=== PATIENT | female | born 2000 | race Two or more races ===

== ENCOUNTER 2019-08-26 04:17 | Inpatient (IN) | payer MEDICAID ==
[2019-08-26] MEDS ORDERED: Penicillin G Potassium 5 MILLUNITS in Sodium Chloride 0.9% 50 ML IV ONE (04:36)
[2019-08-26] MEDS ORDERED: Lactated Ringers 1,000 ML IV ONE ×2 (04:45→06:36)
[2019-08-26] MEDS ORDERED: Ropivacaine 100 ML ONE (05:24)
--- NOTE | 2019-08-26 05:30 | PCM.LDHP ---
L&D History of Present Illness - General Date of Service: 08/26/19 Admit Problem/Dx: Admission Diagnosis/Problem Admission Diagnosis/Problem Source of Information: Patient History Limitations: Reports: No Limitations - History of Present Illness Introduction:: 08/26/19 19 yo is here in active labor at 39 0/7 weeks. She began faby yesterday afternoon. She came in early this morning at about 4-5 cm, membranes intact. She desires an epidural. A positive blood type. Hep B/C/HIV all non reactive. Needs MMR. GBS positive and is receiving antibiotics. she is non [place] speaking so an interpreter for the deaf is being used. 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: Reports: : 2 Para: 1 LMP (Approximate): Social & Family History - Tobacco Use Smoking Status *Q: Never Smoker H&P Review of Systems - Review of Systems: Review Of Systems: See Below General: Reports: No Symptoms HEENT: Reports: No Symptoms Pulmonary: Reports: No Symptoms Cardiovascular: Reports: No Symptoms Gastrointestinal: Reports: No Symptoms Genitourinary: Reports: No Symptoms Musculoskeletal: Reports: No Symptoms Skin: Reports: No Symptoms Psychiatric: Reports: No Symptoms Neurological: Reports: No Symptoms Hematologic/Lymphatic: Reports: No Symptoms Immunologic: Reports: No Symptoms L&D Exam - Exam Exam: See Below - Vital Signs Vital Signs: Last Vital Signs Temp Pulse 79 08/26/19 04:36 Resp 18 08/26/19 04:36 BP 130/84 08/26/19 04:36 Pulse Ox 98 08/26/19 04:36 Weight: 102.058 kg - OB Specific Contraction Intensity: Moderate to Strong Movement: Active Heart Tones: Present Heart Rate (FHR) Variability: Moderate (6-25 bmp) Presentation: Vertex - Exam General: Alert, Oriented HEENT: PERRLA, Conjunctiva Clear, Hearing Intact, Mucosa Moist & [place], Nares Patent, Normal Nasal Septum, Posterior Pharynx Clear, Pupils Equal, Pupils Reactive Neck: Supple, Trachea Midline Lungs: Clear to Auscultation, Normal Respiratory Effort Cardiovascular: Regular Rate, Regular Rhythm GI/Abdominal Exam: Normal Bowel Sounds, Soft, Non-Tender, No Organomegaly, No Distention, No Mass, Pelvis Stable Rectal Exam: Normal Exam Genitourinary: Normal external exam, Cervical dilitation, Enlarged uterus Back Exam: Normal Inspection, Full Range of Motion Extremities: Normal Inspection, Normal Range of Motion, Non-Tender, No Pedal Edema, Normal Capillary Refill Skin: Warm, Dry, Intact Neurological: Cranial Nerves Intact, Reflexes Equal Bilateral Psychiatric: Alert, Normal Affect, Normal Mood - Patient Data Lab Results Last 24 hrs: Laboratory Results - last 24 hr 08/26/19 08/26/19 08/26/19 Range/Units 04:37 04:37 04:50 WBC 12.4 H (4.5-11.0) K/uL RBC 4.32 (3.30-5.50) M/uL Hgb 11.3 L (12.0-15.0) g/dL Hct 35.6 L (36.0-48.0) % MCV 82 (80-98) fL MCH 26 L (27-31) pg MCHC 32 (32-36) % Plt Count 373 (150-400) K/uL Neut % (Auto) 71 H (36-66) % Lymph % (Auto) 24 (24-44) % [place] % (Auto) 5 (2-6) % Eos % (Auto) 0 L (2-4) % Baso % (Auto) 0 (0-1) % Urine Color Yellow (YELLOW) Urine Appearance Cloudy A (CLEAR) Urine pH 7.0 (5.0-8.0) Ur Specific [place] 1.025 (1.008-1.030) Urine Protein >=300 H (NEGATIVE) mg/dL Urine Glucose (UA) Negative (NEGATIVE) mg/dL Urine Ketones Negative (NEGATIVE) mg/dL Urine Occult Blood Trace-intact H (NEGATIVE) Urine Nitrite Negative (NEGATIVE) Urine Bilirubin Negative (NEGATIVE) Urine Urobilinogen 1.0 (0.2-1.0) EU/dL Ur Leukocyte Esterase Small H (NEGATIVE) Urine RBC 5-10 H (0-5) Urine WBC 20-30 H (0-5) Ur Epithelial Cells Many Amorphous Sediment Few Urine Bacteria Many Urine Mucus Few Urine Opiates Screen Negative (NEGATIVE) Ur Oxycodone Screen Negative (NEGATIVE) Urine Methadone Screen Negative (NEGATIVE) Ur Propoxyphene Screen Negative (NEGATIVE) Ur Barbiturates Screen Negative (NEGATIVE) Ur Tricyclics Screen Negative (NEGATIVE) Ur Phencyclidine Scrn Negative (NEGATIVE) Ur Amphetamine Screen Negative (NEGATIVE) U Methamphetamines Scrn Negative (NEGATIVE) Urine MDMA Screen Negative (NEGATIVE) U Benzodiazepines Scrn Negative (NEGATIVE) U Cocaine Metab Screen Negative (NEGATIVE) U Marijuana (THC) Screen Negative (NEGATIVE) Result Diagrams: 08/26/19 04:50 - Problem List (1) Active labor at term SNOMED Code(s): 15660949 ICD Code: HSY3161 - Status: Acute Current Visit: Yes (2) Mother positive for group B Streptococcus colonization SNOMED Code(s): 11452696735500 ICD Code: P00.2 - AFFECTED BY MATERNAL INFEC/PARASTC DISEASES Status: Acute Current Visit: Yes (3) Rubella non-immune status, antepartum SNOMED Code(s): 757836565 ICD Code: O99.89 - OTH DISEASES AND CONDITIONS COMPL PREG/CHLDBRTH; Z28.3 - UNDERIMMUNIZATION STATUS Status: Acute Current Visit: Yes Problem List Initiated/Reviewed/Updated: Yes Orders Last 24hrs: Active Orders 24 hr Category Date Time Status OB Check [OM.PC] Click to Edit Care 08/26/19 04:36 Ordered PCEA Epidural [RC] ASDIRECTED Care 08/26/19 04:38 Active Lactated Ringers [Ringers, Lactated] 1,000 ml Med 08/26/19 04:45 Active IV BOLUS Penicillin G Potassium [Pfizerpen] 2.5 millunits Med 08/26/19 08:30 Active Sodium Chloride 0.9% [Normal Saline] 50 ml IV Q4H Epidural Catheter Management [OM.PC] Stat Oth 08/26/19 04:38 Ordered Medication Orders Penicillin G Potassium 2.5 (millunits/ Sodium Chloride) 50 mls @ 100 mls/hr IV Q4H JOSE ANGEL Lactated Ringer's (Ringers, Lactated) 1,000 mls @ 999 mls/hr IV BOLUS ONE Stop: 08/26/19 05:45 Assessment/Plan Comment:: 08/26/19 Assessment: in active labor with one prior vaginal delivery without complications Desires epidural GBS positive, one dose of antibiotics is in Needs MMR Plan: Monitor labor progression Anticipate
[2019-08-26] MEDS ORDERED: ePHEDrine 50 MG/ML SDV ONE (05:35)
[2019-08-26] MEDS: ePHEDrine 50 MG/ML SDV IVPUSH PRN ×2 (06:02→06:13)
[2019-08-26] MEDS ORDERED: Lactated Ringers 1,000 ML IV SCH (06:45)
--- NOTE | 2019-08-26 07:10 | ANES ---
DATE OF SERVICE: 08/26/2019 TIME: 514. INDICATION: I was called to the Labor and Delivery Unit by Marnie Hendrickson to evaluate Ms. Chino for a labor epidural. This is her 2nd baby. She is approximately 5 to 6 cm and in very active labor. She does not speak any Swedish, so we explained everything through the wage and hour investigator. The risks and benefits of the procedure were explained to the patient. She wished to proceed with a labor epidural. TECHNIQUE: She was placed in a sitting position. Her back was prepped x3 with Betadine, and 1% lidocaine skin local was used. The epidural was placed at L3-4 using a 17-gauge Tuohy needle and loss of resistance technique. The epidural had very good feel throughout, and the epidural space was easily identified. There was negative CSF, negative blood, negative paresthesias noted. Therefore, a catheter was threaded to 14 cm at the skin. There was negative CSF, negative blood, and negative paresthesias noted with the catheter. Therefore, a 1.5% lidocaine test dose was given. This test dose was negative. The catheter was then secured with Tegaderm and tape and the patient was placed in a supine position. A 0.2% ropivacaine bolus of 12 mL was given. She had very good relief from the initial bolus and her vital signs remained stable. Therefore, a 0.2% ropivacaine drip was started at 12 mL per hour. She tolerated the procedure very nicely. Her vital signs remained stable throughout the procedure and nurse was with me the entire procedure. There were no anesthesia complications noted, and we will continue to monitor her throughout her labor and delivery. Ramírez Lopez CRNA /[id number]
--- NOTE | 2019-08-26 07:21 | PCM.PNLD ---
Labor Progress Note - VS & Meds Vital Signs: Last Vital Signs Temp Pulse 79 08/26/19 04:36 Resp 18 08/26/19 04:36 BP 130/84 08/26/19 04:36 Pulse Ox 98 08/26/19 04:36 Active Medications: Current Medications Ephedrine Sulfate (Ephedrine Sulfate) 10 mg IVPUSH ASDIRECTED PRN PRN Reason: Other Last Admin: 08/26/19 06:13 Dose: 5 mg Penicillin G Potassium 2.5 (millunits/ Sodium Chloride) 50 mls @ 100 mls/hr IV Q4H JOSE ANGEL Oxytocin/Sodium Chloride (Pitocin In Ns 20 Units/1,000 Ml) 20 unit in 1,000 mls @ 2,997 mls/hr IV ASDIRECTED JOSE ANGEL; Protocol Lactated Ringer's (Ringers, Lactated) 1,000 mls @ 999 mls/hr IV BOLUS ONE Stop: 08/26/19 07:36 Last Admin: 08/26/19 05:54 Dose: 999 mls/hr Lactated Ringer's (Ringers, Lactated) 1,000 mls @ 125 mls/hr IV ASDIRECTED JOSE ANGEL Last Admin: 08/26/19 07:00 Dose: 125 mls/hr Discontinued Medications Ephedrine Sulfate (Ephedrine Sulfate) Confirm Administered Dose 50 mg .ROUTE .STK-MED ONE Stop: 08/26/19 05:36 Penicillin G Potassium 5 (millunits/ Sodium Chloride) 50 mls @ 100 mls/hr IV ONETIME ONE Stop: 08/26/19 05:05 Last Admin: 08/26/19 05:06 Dose: 100 mls/hr Lactated Ringer's (Ringers, Lactated) 1,000 mls @ 999 mls/hr IV BOLUS ONE Stop: 08/26/19 05:45 Last Admin: 08/26/19 04:45 Dose: 999 mls/hr Ropivacaine (Naropin 0.2%) Confirm Administered Dose 100 mls @ as directed .ROUTE .STK-MED ONE Stop: 08/26/19 05:25 - Uterine Contractions Uterine Monitoring Mode: External [place] Contraction Frequency (min): unable to assess Contraction Duration (sec): TOCO moved Contraction Intensity: Moderate to Strong - Monitoring Monitor Mode: External Ultrasound Heart Rate (FHR) Variability: Moderate (6-25 bmp) Decelerations: Early - Vaginal Exam Dilation (cm): 8 Effacement (Percent): 90 Station: -1 Cervical Position: Midposition Sterile Vaginal Exam Performed By: Deidra Manrique - Labor Progress (Free Text) Labor Progress: 08/26/19 Difficulty picking up contractions due to body habitus. Baby is showing what we are assuming to be early decelerations at times, attempting to get better strip to identify for sure. Rotating mother on peanut ball. Comfortable with epidural. I did perform AROM, did not get much for fluid and no more bag felt to rupture. Anticipate .
[2019-08-26] MEDS ORDERED: Penicillin G Potassium 2.5 MILLUNITS in Sodium Chloride 0.9% 50 ML IV SCH (08:30)
[2019-08-26] MEDS ORDERED: Docusate Sodium 100 MG Cap PO PRN (08:35)
[2019-08-26] MEDS ORDERED: Benzocaine 20% Top Spray 56 GM Bottle TOP PRN (08:35)
[2019-08-26] MEDS ORDERED: Acetaminophen 325 MG Tab, 50 Tab Bulk Bottle PO PRN (08:35)
[2019-08-26] MEDS ORDERED: Lanolin 100% Cream 40 GM Tube TOP PRN (08:35)
[2019-08-26] MEDS ORDERED: Ibuprofen 200 MG Tab, 24 Tab Bulk Bottle PO PRN (08:35)
--- NOTE | 2019-08-26 08:49 | PCM.DEL ---
L & D Note - General Info Date of Service: 08/26/19 Mother's Due Date: 09/02/19 - Delivery Note Labor: Spontaneous Delivery Outcome: Livebirth Infant Delivery Method: Spontaneous Vaginal Delivery-Single Presentation: Right Occiput Anterior (ADAM) Nuchal Cord: Present (loose, reduced) Anesthesia Type: Epidural Amniotic Fluid Description: Clear Episiotomy Type: None Laceration: 1st Degree, 2nd Degree Suture type: Vicryl Suture size: 3-0 Placenta: Intact, Spontaneous Cord: 3 Vessels Estimated Blood Loss: 300 Resuscitation Needed: No Mikana: Stimulated Provider: Marnie Hendrickson Score 1 min: 8 Score 5 min: 9 Second Stage Interventions: Reports: Second Nurse Assessed Progress of Descent, Second Nurse Reviewed Contraction Pattern, Second Nurse Reviewed Heart Tones, Encouragement Given, Pushing Effectively, Pushing, McRobert's Position, Pushing, Pulls Own Legs Back Delivery Comments (Free Text/Narrative):: 08/26/19 19 yo G2 now P2 delivered a baby girl at 0742 vaginally. She came in with active labor and was given an epidural per her request. She progressed nicely and began involuntarily pushing once complete. Baby girl was born in ADAM position with a loose nuchal cord that was reduced and cried spontaneously. Baby was placed on mothers chest and delayed cord clamping was done for 2 minutes. Apgars 8, 9. Placenta delivered spontaneously intact with a 3 vessel cord. There is a first degree laceration, not repaired. There is a separate very small second degree tear that was repaired. There are also several periurethral splits, one on pt right side was repaired due to oozing. There are no vaginal or cervical lacerations. FF and bleeding light to moderate. Baby is currently at breast and skin to skin doing very well. Stages of labor: 1: 3150-2250 2: 2039-7182 3: 2712-9032 - General Info Date of Service: 08/26/19 Functional Status: Reports: Pain Controlled - Review of Systems General: Reports: No Symptoms HEENT: Reports: No Symptoms Pulmonary: Reports: No Symptoms Cardiovascular: Reports: No Symptoms Gastrointestinal: Reports: No Symptoms Genitourinary: Reports: No Symptoms Musculoskeletal: Reports: No Symptoms Skin: Reports: No Symptoms Neurological: Reports: No Symptoms Psychiatric: Reports: No Symptoms - Patient Data Vitals - Most Recent: Last Vital Signs Temp Pulse 113 H 08/26/19 07:53 Resp 18 08/26/19 04:36 BP 98/54 L 08/26/19 07:53 Pulse Ox 99 08/26/19 06:30 Weight - Most Recent: 102.058 kg I&O - Last 24 Hours: Intake & Output 08/25/19 08/26/19 08/26/19 22:59 06:59 14:59 Output Total 240 Balance -240 Lab Results Last 24 Hours: Laboratory Results - last 24 hr 08/26/19 08/26/19 08/26/19 Range/Units 04:37 04:37 04:50 WBC 12.4 H (4.5-11.0) K/uL RBC 4.32 (3.30-5.50) M/uL Hgb 11.3 L (12.0-15.0) g/dL Hct 35.6 L (36.0-48.0) % MCV 82 (80-98) fL MCH 26 L (27-31) pg MCHC 32 (32-36) % Plt Count 373 (150-400) K/uL Neut % (Auto) 71 H (36-66) % Lymph % (Auto) 24 (24-44) % [place] % (Auto) 5 (2-6) % Eos % (Auto) 0 L (2-4) % Baso % (Auto) 0 (0-1) % Urine Color Yellow (YELLOW) Urine Appearance Cloudy A (CLEAR) Urine pH 7.0 (5.0-8.0) Ur Specific [place] 1.025 (1.008-1.030) Urine Protein >=300 H (NEGATIVE) mg/dL Urine Glucose (UA) Negative (NEGATIVE) mg/dL Urine Ketones Negative (NEGATIVE) mg/dL Urine Occult Blood Trace-intact H (NEGATIVE) Urine Nitrite Negative (NEGATIVE) Urine Bilirubin Negative (NEGATIVE) Urine Urobilinogen 1.0 (0.2-1.0) EU/dL Ur Leukocyte Esterase Small H (NEGATIVE) Urine RBC 5-10 H (0-5) Urine WBC 20-30 H (0-5) Ur Epithelial Cells Many Amorphous Sediment Few Urine Bacteria Many Urine Mucus Few Urine Opiates Screen Negative (NEGATIVE) Ur Oxycodone Screen Negative (NEGATIVE) Urine Methadone Screen Negative (NEGATIVE) Ur Propoxyphene Screen Negative (NEGATIVE) Ur Barbiturates Screen Negative (NEGATIVE) Ur Tricyclics Screen Negative (NEGATIVE) Ur Phencyclidine Scrn Negative (NEGATIVE) Ur Amphetamine Screen Negative (NEGATIVE) U Methamphetamines Scrn Negative (NEGATIVE) Urine MDMA Screen Negative (NEGATIVE) U Benzodiazepines Scrn Negative (NEGATIVE) U Cocaine Metab Screen Negative (NEGATIVE) U Marijuana (THC) Screen Negative (NEGATIVE) Med Orders - Current: Current Medications Acetaminophen (Tylenol Bulk Bottle) 0 mg PO Q4H PRN PRN Reason: Pain Benzocaine (Wygp-C-Kofbqyt 20% [place]) 0 gm TOP Q4H PRN PRN Reason: Perineal Comfort Measure Docusate Sodium (Colace) 100 mg PO BID PRN PRN Reason: Constipation Emollient Ointment (Lansinoh Hpa) 1 gm TOP ASDIRECTED PRN PRN Reason: Sore Nipples Ephedrine Sulfate (Ephedrine Sulfate) 10 mg IVPUSH ASDIRECTED PRN PRN Reason: Other Last Admin: 08/26/19 06:13 Dose: 5 mg Oxytocin/Sodium Chloride (Pitocin In Ns 20 Units/1,000 Ml) 20 unit in 1,000 mls @ 2,997 mls/hr IV ASDIRECTED [facility]; Protocol Last Admin: 08/26/19 07:43 Dose: 999 munits/min, 2,997 mls/hr Lactated Ringer's (Ringers, Lactated) 1,000 mls @ 125 mls/hr IV ASDIRECTED JOSE ANGEL Last Admin: 08/26/19 07:00 Dose: 125 mls/hr Ibuprofen (Motrin Bulk Bottle) 600 mg PO Q6H PRN PRN Reason: Pain Measles/Mumps/Rubella Vaccine Live (M-M-R Ii Vaccine) 0.5 ml SUBCUT .ONCE ONE Stop: 08/26/19 08:36 Discontinued Medications Ephedrine Sulfate (Ephedrine Sulfate) Confirm Administered Dose 50 mg .ROUTE .STK-MED ONE Stop: 08/26/19 05:36 Penicillin G Potassium 5 (millunits/ Sodium Chloride) 50 mls @ 100 mls/hr IV ONETIME ONE Stop: 08/26/19 05:05 Last Admin: 08/26/19 05:06 Dose: 100 mls/hr Penicillin G Potassium 2.5 (millunits/ Sodium Chloride) 50 mls @ 100 mls/hr IV Q4H JOSE ANGEL Lactated Ringer's (Ringers, Lactated) 1,000 mls @ 999 mls/hr IV BOLUS ONE Stop: 08/26/19 05:45 Last Admin: 08/26/19 04:45 Dose: 999 mls/hr Ropivacaine (Naropin 0.2%) Confirm Administered Dose 100 mls @ as directed .ROUTE .STK-MED ONE Stop: 08/26/19 05:25 Lactated Ringer's (Ringers, Lactated) 1,000 mls @ 999 mls/hr IV BOLUS ONE Stop: 08/26/19 07:36 Last Admin: 08/26/19 05:54 Dose: 999 mls/hr - Exam General: Alert, Oriented HEENT: Pupils Equal, Pupils Reactive, EOMI, Mucous Membr. Moist/[place] Neck: Supple Lungs: Clear to Auscultation, Normal Respiratory Effort Cardiovascular: Regular Rate, Regular Rhythm GI/Abdominal Exam: Normal Bowel Sounds, Soft, Non-Tender, No Organomegaly, No Distention, Pelvis Stable (Female) Exam: Normal External Exam, Cervical Dilatation, Enlarged Uterus, Vaginal Bleeding Back Exam: Normal Inspection, Full Range of Motion Extremities: Normal Inspection, Normal Range of Motion, Non-Tender, No Pedal Edema, Normal Capillary Refill Skin: Warm, Dry, Intact Neurological: No New Focal Deficit Psy/Mental Status: Alert, Normal Affect, Normal Mood - Problem List & Annotations (1) Active labor at term SNOMED Code(s): 46213992 Code(s): NMX9622 - Status: Acute Current Visit: Yes (2) Mother positive for group B Streptococcus colonization SNOMED Code(s): 71955150301792 Code(s): P00.2 - AFFECTED BY MATERNAL INFEC/PARASTC DISEASES Status : Acute Current Visit: Yes (3) Rubella non-immune status, antepartum SNOMED Code(s): 407396353 Code(s): O99.89 - OTH DISEASES AND CONDITIONS COMPL PREG/CHLDBRTH; Z28.3 - UNDERIMMUNIZATION STATUS Status: Acute Current Visit: Yes (4) Vaginal delivery SNOMED Code(s): 583742933 Code(s): O80 - ENCOUNTER FOR FULL-TERM UNCOMPLICATED DELIVERY Status: Acute Current Visit: Yes (5) High vaginal laceration during delivery SNOMED Code(s): 453171562 Code(s): O71.4 - OBSTETRIC HIGH VAGINAL LACERATION ALONE Status: Acute Current Visit: Yes (6) started SNOMED Code(s): 414227503 Code(s): FMJ6409 - Status: Acute Current Visit: Yes - Problem List Review Problem List Initiated/Reviewed/Updated: Yes - My Orders Last 24 Hours: My Active Orders 08/26/19 04:36 OB Check [OM.PC] Click to Edit 08/26/19 04:38 PCEA Epidural [RC] ASDIRECTED Epidural Catheter Management [OM.PC] Stat 08/26/19 05:30 Insert [place] Catheter [Insert Urinary Catheter] [OM.PC] Q24H 08/26/19 05:45 Oxytocin/Normal Saline [Pitocin in NS 20 Units/1,000 ML] 20 unit in 1,000 ml IV ASDIRECTED 08/26/19 06:34 Urinary Catheter Assessment [RC] ASDIRECTED 08/26/19 06:45 Lactated Ringers [Ringers, Lactated] 1,000 ml IV ASDIRECTED 08/26/19 08:35 May Shower [RC] ASDIRECTED Up ad Grisel [RC] ASDIRECTED Consult to [employer] Crewmember [CONS] Routine Acetaminophen [Tylenol Bulk Bottle] See Dose Instructions PO Q4H PRN Benzocaine [Gqxs-I-Jjokoio 20% [place]] See Dose Instructions TOP Q4H PRN Docusate Sodium [Colace] 100 mg PO BID PRN Ibuprofen [Motrin Bulk Bottle] 600 mg PO Q6H PRN Lanolin [Lansinoh HPA] 1 gm TOP ASDIRECTED PRN Measles, Mumps & Rubella [M-M-R II Vaccine] 0.5 ml SUBCUT .ONCE ONE Assess Lochia [WOMSER] Per Unit Routine Assess Uterine Involution [WOMSER] Per Unit Routine DVT/VTE Prophylaxis Reflex [OM.PC] Routine Resuscitation Status Routine 08/26/19 08:36 Patient Status [ADT] Routine Vital Signs [RC] PFP Ice Therapy [OM.PC] Per Unit Routine Perineal Care [OM.PC] Per Unit Routine 08/26/19 08:37 VTE/DVT Education [RC] Click to Edit 06/13/20 Breakfast Regular Diet [DIET] 08/27/19 05:11 CBC WITH AUTO DIFF [HEME] AM - Assessment Assessment:: 08/26/19 1st degree laceration not repaired, separate small second repaired Several periurethral splits, one on upper right was repaired due to oozing FF bleeding normal GBS positive, one dose antibiotics Protein in urine on presentation, no nitrates or leukocytes Needs MMR before discharge - Plan Plan:: 08/26/19 Assessment: in active labor with one prior vaginal delivery without complications Desires epidural GBS positive, one dose of antibiotics is in Needs MMR Plan: Monitor labor progression Anticipate 08/26/19 Routine cares support Needs MMR before discharge Recheck CBC in am
[2019-08-26] MEDS ORDERED: Measles, Mumps & Rubella Vaccine 0.5 ML SDV SUBCUT ONE (10:00)
--- NOTE | 2019-08-27 08:42 | PCM.PNPP ---
- General Info Date of Service: 08/27/19 Functional Status: Reports: Pain Controlled - Review of Systems General: Reports: No Symptoms HEENT: Reports: No Symptoms Pulmonary: Reports: No Symptoms Cardiovascular: Reports: No Symptoms Gastrointestinal: Reports: No Symptoms Genitourinary: Reports: No Symptoms Musculoskeletal: Reports: No Symptoms Skin: Reports: No Symptoms Neurological: Reports: No Symptoms Psychiatric: Reports: No Symptoms - General Info Date of Service: 08/27/19 - Patient Data Vital Signs - Most Recent: Last Vital Signs Temp 36.4 C 08/27/19 08:05 Pulse 71 08/27/19 08:05 Resp 16 08/27/19 08:05 BP 99/65 08/27/19 08:05 Pulse Ox 97 08/27/19 08:05 Weight - Most Recent: 102.058 kg I&O - Last 24 Hours: Intake & Output 08/26/19 08/27/19 08/27/19 22:59 06:59 14:59 Intake Total 600 Balance 600 Lab Results - Last 24 Hours: Laboratory Results - last 24 hr 08/27/19 Range/Units 05:11 WBC 10.6 (4.5-11.0) K/uL RBC 3.57 (3.30-5.50) M/uL Hgb 9.2 L D (12.0-15.0) g/dL Hct 30.0 L (36.0-48.0) % MCV 84 (80-98) fL MCH 26 L (27-31) pg MCHC 31 L (32-36) % Plt Count 295 (150-400) K/uL Neut % (Auto) 59 (36-66) % Lymph % (Auto) 35 (24-44) % [place] % (Auto) 5 (2-6) % Eos % (Auto) 1 L (2-4) % Baso % (Auto) 0 (0-1) % Med Orders - Current: Current Medications Acetaminophen (Tylenol Bulk Bottle) 0 mg PO Q4H PRN PRN Reason: Pain Last Admin: 08/26/19 11:31 Dose: 650 mg Benzocaine (Txpk-X-Hsrzgjh 20% [place]) 0 gm TOP Q4H PRN PRN Reason: Perineal Comfort Measure Last Admin: 08/26/19 11:30 Dose: 1 applic Docusate Sodium (Colace) 100 mg PO BID PRN PRN Reason: Constipation Emollient Ointment (Lansinoh Hpa) 1 gm TOP ASDIRECTED PRN PRN Reason: Sore Nipples Last Admin: 08/26/19 11:30 Dose: 1 applic Ephedrine Sulfate (Ephedrine Sulfate) 10 mg IVPUSH ASDIRECTED PRN PRN Reason: Other Last Admin: 08/26/19 06:13 Dose: 5 mg Ibuprofen (Motrin Bulk Bottle) 600 mg PO Q6H PRN PRN Reason: Pain Last Admin: 08/26/19 11:31 Dose: 600 mg Discontinued Medications Ephedrine Sulfate (Ephedrine Sulfate) Confirm Administered Dose 50 mg .ROUTE .STK-MED ONE Stop: 08/26/19 05:36 Last Admin: 08/26/19 09:38 Dose: Not Given Penicillin G Potassium 5 (millunits/ Sodium Chloride) 50 mls @ 100 mls/hr IV ONETIME ONE Stop: 08/26/19 05:05 Last Admin: 08/26/19 05:06 Dose: 100 mls/hr Penicillin G Potassium 2.5 (millunits/ Sodium Chloride) 50 mls @ 100 mls/hr IV Q4H [facility] Lactated Ringer's (Ringers, Lactated) 1,000 mls @ 999 mls/hr IV BOLUS ONE Stop: 08/26/19 05:45 Last Admin: 08/26/19 04:45 Dose: 999 mls/hr Ropivacaine (Naropin 0.2%) Confirm Administered Dose 100 mls @ as directed .ROUTE .STK-MED ONE Stop: 08/26/19 05:25 Oxytocin/Sodium Chloride (Pitocin In Ns 20 Units/1,000 Ml) 20 unit in 1,000 mls @ 2,997 mls/hr IV ASDIRECTED JOSE ANGEL; Protocol Last Admin: 08/26/19 07:43 Dose: 999 munits/min, 2,997 mls/hr Lactated Ringer's (Ringers, Lactated) 1,000 mls @ 999 mls/hr IV BOLUS ONE Stop: 08/26/19 07:36 Last Admin: 08/26/19 05:54 Dose: 999 mls/hr Lactated Ringer's (Ringers, Lactated) 1,000 mls @ 125 mls/hr IV ASDIRECTED JOSE ANGEL Last Admin: 08/26/19 07:00 Dose: 125 mls/hr Measles/Mumps/Rubella Vaccine Live (M-M-R Ii Vaccine) 0.5 ml SUBCUT .ONCE ONE Stop: 08/26/19 10:01 - Interaction Infant Disposition, : in Room with Family Infant Interaction: Holding Infant Feeding: Breastfed Infant; Nursed Well Support Person: Significant Other - Recovery Exam Fundal Tone: Firm Fundal Level: 1 Fingerbreadths Below Umbilicus Fundal Placement: Midline Lochia Amount: Moderate Lochia Color: Rubra/Red Perineum Description: Intact, Minimal Bruising/Swelling Episiotomy/Laceration: Approximated Bladder Status: Voiding Urinary Elimination: Voided - Exam General: Alert, Oriented HEENT: Pupils Equal, Pupils Reactive, Mucous Membr. Moist/[place] Neck: Supple Lungs: Clear to Auscultation, Normal Respiratory Effort Cardiovascular: Regular Rate, Regular Rhythm GI/Abdominal Exam: Normal Bowel Sounds, Soft, Non-Tender, No Organomegaly, No Distention, No Mass, Pelvis Stable Extremities: Normal Inspection, Normal Range of Motion, Non-Tender, No Pedal Edema, Normal Capillary Refill Skin: Warm, Dry, Intact Neurological: No New Focal Deficit Psy/Mental Status: Alert, Normal Affect, Normal Mood - Problem List & Annotations (1) Active labor at term SNOMED Code(s): 02987811 Code(s): MVS8740 - Status: Acute Current Visit: Yes (2) Mother positive for group B Streptococcus colonization SNOMED Code(s): 87659696254803 Code(s): P00.2 - AFFECTED BY MATERNAL INFEC/PARASTC DISEASES Status : Acute Current Visit: Yes (3) Rubella non-immune status, antepartum SNOMED Code(s): 251594157 Code(s): O99.89 - OTH DISEASES AND CONDITIONS COMPL PREG/CHLDBRTH; Z28.3 - UNDERIMMUNIZATION STATUS Status: Acute Current Visit: Yes (4) Vaginal delivery SNOMED Code(s): 332495651 Code(s): O80 - ENCOUNTER FOR FULL-TERM UNCOMPLICATED DELIVERY Status: Acute Current Visit: Yes (5) started SNOMED Code(s): 075777678 Code(s): GNF4088 - Status: Acute Current Visit: Yes (6) Perineal laceration during delivery SNOMED Code(s): 286857981 Code(s): O70.9 - PERINEAL LACERATION DURING DELIVERY, UNSPECIFIED Status: Acute Current Visit: Yes Qualifiers: Perineal laceration degree: laceration of unspecified degree Qualified Code (s): O70.9 - Perineal laceration during delivery, unspecified - Problem List Review Problem List Initiated/Reviewed/Updated: Yes - My Orders Last 24 Hours: My Active Orders 08/26/19 08:35 May Shower [RC] ASDIRECTED Up ad Grisel [RC] ASDIRECTED Consult to Automated Cutting Machine Operator [CONS] Routine Acetaminophen [Tylenol Bulk Bottle] See Dose Instructions PO Q4H PRN Benzocaine [Ilox-W-Kaxndir 20% Neely] See Dose Instructions TOP Q4H PRN Docusate Sodium [Colace] 100 mg PO BID PRN Ibuprofen [Motrin Bulk Bottle] 600 mg PO Q6H PRN Lanolin [Lansinoh HPA] 1 gm TOP ASDIRECTED PRN Assess Lochia [WOMSER] Per Unit Routine Assess Uterine Involution [WOMSER] Per Unit Routine DVT/VTE Prophylaxis Reflex [OM.PC] Routine Resuscitation Status Routine 08/26/19 08:36 Patient Status [ADT] Routine Vital Signs [RC] Q4H Ice Therapy [OM.PC] Per Unit Routine Perineal Care [OM.PC] Per Unit Routine 08/26/19 08:37 VTE/DVT Education [RC] Click to Edit 08/26/19 Breakfast Regular Diet [DIET] - Assessment Assessment:: 08/26/19 1st degree laceration not repaired, separate small second repaired Several periurethral splits, one on upper right was repaired due to oozing FF bleeding normal GBS positive, one dose antibiotics Protein in urine on presentation, no nitrates or leukocytes Needs MMR before discharge 08/27/19 day 1, feeling very well Hgb 9.2, asymptomatic FF bleeding light going very well - Plan Plan:: 08/26/19 Assessment: in active labor with one prior vaginal delivery without complications Desires epidural GBS positive, one dose of antibiotics is in Needs MMR Plan: Monitor labor progression Anticipate 08/26/19 Routine cares support Needs MMR before discharge Recheck CBC in am 08/27/19 Routine cares Culture urine Add iron for Hgb 9.2 Anticipate discharge home tomorrow
[2019-08-27] MEDS ORDERED: Measles, Mumps & Rubella Vaccine 0.5 ML SDV SUBCUT ONE (16:00)
[2019-08-27] MEDS: Ferrous Sulfate 325 MG Tab PO SCH (18:35)
--- NOTE | 2019-08-28 08:06 | PCM.PNPP ---
- General Info Date of Service: 08/28/19 Functional Status: Reports: Pain Controlled - Review of Systems General: Reports: No Symptoms HEENT: Reports: No Symptoms Pulmonary: Reports: No Symptoms Cardiovascular: Reports: No Symptoms Gastrointestinal: Reports: No Symptoms Genitourinary: Reports: No Symptoms Musculoskeletal: Reports: No Symptoms Skin: Reports: No Symptoms Neurological: Reports: No Symptoms Psychiatric: Reports: No Symptoms - General Info Date of Service: 08/28/19 - Patient Data Vital Signs - Most Recent: Last Vital Signs Temp 35.7 C L 08/28/19 04:00 Pulse 70 08/28/19 04:00 Resp 16 08/28/19 04:00 BP 90/43 L 08/28/19 04:00 Pulse Ox 98 08/28/19 04:00 Weight - Most Recent: 102.058 kg I&O - Last 24 Hours: Intake & Output 08/27/19 08/28/19 08/28/19 22:59 06:59 14:59 Intake Total 200 Balance 200 Med Orders - Current: Current Medications Acetaminophen (Tylenol Bulk Bottle) 0 mg PO Q4H PRN PRN Reason: Pain Last Admin: 08/26/19 11:31 Dose: 650 mg Benzocaine ([place]lau-E-Jtwjsdl 20% [place]) 0 gm TOP Q4H PRN PRN Reason: Perineal Comfort Measure Last Admin: 08/26/19 11:30 Dose: 1 applic Docusate Sodium (Colace) 100 mg PO BID PRN PRN Reason: Constipation Emollient Ointment (Lansinoh Hpa) 1 gm TOP ASDIRECTED PRN PRN Reason: Sore Nipples Last Admin: 08/26/19 11:30 Dose: 1 applic Ephedrine Sulfate (Ephedrine Sulfate) 10 mg IVPUSH ASDIRECTED PRN PRN Reason: Other Last Admin: 08/26/19 06:13 Dose: 5 mg Ferrous Sulfate (Ferrous Sulfate) 325 mg PO BIDMEALS JOSE ANGEL Last Admin: 08/27/19 18:35 Dose: 325 mg Ibuprofen (Motrin Bulk Bottle) 600 mg PO Q6H PRN PRN Reason: Pain Last Admin: 08/26/19 11:31 Dose: 600 mg Discontinued Medications Ephedrine Sulfate (Ephedrine Sulfate) Confirm Administered Dose 50 mg .ROUTE .STK-MED ONE Stop: 08/26/19 05:36 Last Admin: 08/26/19 09:38 Dose: Not Given Penicillin G Potassium 5 (millunits/ Sodium Chloride) 50 mls @ 100 mls/hr IV ONETIME ONE Stop: 08/26/19 05:05 Last Admin: 08/26/19 05:06 Dose: 100 mls/hr Penicillin G Potassium 2.5 (millunits/ Sodium Chloride) 50 mls @ 100 mls/hr IV Q4H [facility] Lactated Ringer's (Ringers, Lactated) 1,000 mls @ 999 mls/hr IV BOLUS ONE Stop: 08/26/19 05:45 Last Admin: 08/26/19 04:45 Dose: 999 mls/hr Ropivacaine (Naropin 0.2%) Confirm Administered Dose 100 mls @ as directed .ROUTE .STK-MED ONE Stop: 08/26/19 05:25 Oxytocin/Sodium Chloride (Pitocin In Ns 20 Units/1,000 Ml) 20 unit in 1,000 mls @ 2,997 mls/hr IV ASDIRECTED JOSE ANGEL; Protocol Last Admin: 08/26/19 07:43 Dose: 999 munits/min, 2,997 mls/hr Lactated Ringer's (Ringers, Lactated) 1,000 mls @ 999 mls/hr IV BOLUS ONE Stop: 08/26/19 07:36 Last Admin: 08/26/19 05:54 Dose: 999 mls/hr Lactated Ringer's (Ringers, Lactated) 1,000 mls @ 125 mls/hr IV ASDIRECTED [facility] Last Admin: 08/26/19 07:00 Dose: 125 mls/hr Measles/Mumps/Rubella Vaccine Live (M-M-R Ii Vaccine) 0.5 ml SUBCUT .ONCE ONE Stop: 08/27/19 16:01 Last Admin: 08/27/19 16:41 Dose: 0.5 ml - Infant Interaction Infant Disposition, : Julian in Room with Family Interaction: Holding Infant Infant Feeding: Breastfed Infant; Nursed Well Support Person: Significant Other - Recovery Exam Fundal Tone: Firm Fundal Level: 1 Fingerbreadths Below Umbilicus Fundal Placement: Midline Lochia Amount: Small, Moderate Lochia Color: Rubra/Red Perineum Description: Intact, Minimal Bruising/Swelling Episiotomy/Laceration: Approximated Bladder Status: Voiding Urinary Elimination: Voided - Exam General: Alert, Oriented HEENT: Pupils Equal Neck: Supple Lungs: Clear to Auscultation, Normal Respiratory Effort Cardiovascular: Regular Rate, Regular Rhythm GI/Abdominal Exam: Normal Bowel Sounds, Soft, Non-Tender, No Distention, No Mass , Pelvis Stable Extremities: Normal Inspection, Normal Range of Motion, Non-Tender, No Pedal Edema, Normal Capillary Refill Skin: Warm, Dry, Intact Neurological: No New Focal Deficit Psy/Mental Status: Alert, Normal Affect, Normal Mood - Problem List & Annotations (1) Active labor at term SNOMED Code(s): 28482881 Code(s): TLT8705 - Status: Acute Current Visit: Yes (2) Mother positive for group B Streptococcus colonization SNOMED Code(s): 82350457867402 Code(s): P00.2 - AFFECTED BY MATERNAL INFEC/PARASTC DISEASES Status : Acute Current Visit: Yes (3) Rubella non-immune status, antepartum SNOMED Code(s): 808997302 Code(s): O99.89 - OTH DISEASES AND CONDITIONS COMPL PREG/CHLDBRTH; Z28.3 - UNDERIMMUNIZATION STATUS Status: Acute Current Visit: Yes (4) Vaginal delivery SNOMED Code(s): 916021325 Code(s): O80 - ENCOUNTER FOR FULL-TERM UNCOMPLICATED DELIVERY Status: Acute Current Visit: Yes (5) started SNOMED Code(s): 513475760 Code(s): LDQ0488 - Status: Acute Current Visit: Yes (6) Perineal laceration during delivery SNOMED Code(s): 898215396 Code(s): O70.9 - PERINEAL LACERATION DURING DELIVERY, UNSPECIFIED Status: Acute Current Visit: Yes Qualifiers: Perineal laceration degree: laceration of unspecified degree Qualified Code (s): O70.9 - Perineal laceration during delivery, unspecified - Problem List Review Problem List Initiated/Reviewed/Updated: Yes - My Orders Last 24 Hours: My Active Orders 08/27/19 12:42 CULTURE URINE [RM] Routine 08/27/19 17:00 Ferrous Sulfate 325 mg PO BIDMEALS - Assessment Assessment:: 08/26/19 1st degree laceration not repaired, separate small second repaired Several periurethral splits, one on upper right was repaired due to oozing FF bleeding normal GBS positive, one dose antibiotics Protein in urine on presentation, no nitrates or leukocytes Needs MMR before discharge 08/27/19 day 1, feeling very well Hgb 9.2, asymptomatic FF bleeding light going very well 08/28/19 PP day 2, feeling very well FF and bleeding light going well Urine culture pending - Plan Plan:: 08/26/19 Assessment: in active labor with one prior vaginal delivery without complications Desires epidural GBS positive, one dose of antibiotics is in Needs MMR Plan: Monitor labor progression Anticipate 08/26/19 Routine cares support Needs MMR before discharge Recheck CBC in am 08/27/19 Routine cares Culture urine Add iron for Hgb 9.2 Anticipate discharge home tomorrow 08/28/19 Routine cares No iron for home Discharge home today, reviewed s/s to watch for with certified court/medical interpreter on the line 6 week check
[2019-08-28] MEDS: Ferrous Sulfate 325 MG Tab PO SCH (08:23)
== END 2019-08-28 13:45 | disposition home or self-care (01) | DRG 807 ==
LOC: JP.OBCHECK 04:17 → JP.OB 04:40 → OBSVTOIN 07:42 → JP.OB 07:42 → JP.MS 07:48
PROVIDERS: ADMIT Advanced Practice Midwife; ATTEND Advanced Practice Midwife
PROC: 10E0XZZ Delivery of Products of Conception, External Approach (ICD-10-PCS; principal; 2019-08-26)
PROC: 0KQM0ZZ Repair Perineum Muscle, Open Approach (ICD-10-PCS; 2019-08-26)
PROC: 10907ZC Drainage of Amniotic Fluid, Therapeutic from Products of Conception, Via Natural or Artificial Opening (ICD-10-PCS; 2019-08-26)
PROC: 3E0R3BZ Introduction of Anesthetic Agent into Spinal Canal, Percutaneous Approach (ICD-10-PCS; 2019-08-26)
PROC: 00HU33Z Insertion of Infusion Device into Spinal Canal, Percutaneous Approach (ICD-10-PCS; 2019-08-26)
PROC: 3E0234Z Introduction of Serum, Toxoid and Vaccine into Muscle, Percutaneous Approach (ICD-10-PCS; 2019-08-27)
DX: O99.824 Streptococcus B carrier state complicating childbirth (principal); Z37.0 Single live birth; Z3A.39 39 weeks gestation of pregnancy; O69.81X0 Labor and delivery complicated by cord around neck, without compression, not applicable or unspecified; O70.1 Second degree perineal laceration during delivery; Z23 Encounter for immunization
CPT/HCPCS: 36415; 51702; 59409; 80305-QW; 81001; 85025; 87086; 90471; 90707; 99211; A9270-GY; J2540; J2590; J2795; J7050; J7120